=== PATIENT | female | born 1990 | race Caucasian/White ===

== ENCOUNTER 2018-11-20 16:00 | Inpatient (IN) | payer OTHER ==
[~2018-11-20] VITALS: Ht 157.5 cm; Wt 98.0 kg
[2018-11-20] MEDS ORDERED: NOVOLIN 70100 UNIT/1 SC (16:21)
[2018-11-20] MEDS ORDERED: Novolin R100 UNIT/M SC (16:23)
[2018-11-20] MEDS ORDERED: Humulin N100 UNIT/1 SC (16:24)
[2018-11-20] MEDS ORDERED: Verotin-Gr Cap1 EACH PO (16:24)
[2018-11-20] MEDS ORDERED: LEVSOD75 PO (16:25)
[2018-11-20 17:30] LABS: BASOPHILS ABSOLUTE AUTO 0.02 K/mm3 (0.00-0.23); BASOPHILS PERCENT AUTO 0 % (0-2); EOSINOPHILS ABSOLUTE AUTO 0.06 K/mm3 (0.00-0.68); EOSINOPHILS PERCENT AUTO 1 % (0-6); Hematocrit 39.5 % (33.0-51.0); Hemoglobin 12.9 g/dL (11.5-16.0); IMMATURE GRAN ABSOLUTE AUTO 0.12 K/mm3 (0.00-0.10); IMMATURE GRAN PERCENT AUTO 1 % (0-1); LYMPHOCYTES PERCENT AUTO 13 % (21-46); MONOCYTES ABSOLUTE AUTO 0.71 K/mm3 (0.16-1.47); MONOCYTES PERCENT AUTO 5 % (4-13); Mean Corpuscular HGB 30.8 pg (26.0-34.0); Mean Corpuscular HGB Conc 32.7 g/dL (31.5-36.5); Mean Corpuscular Volume 94 fL (80-100); Mean Platelet Volume 10.5 fL (9.1-12.4); NEUTROPHILS ABSOLUTE AUTO 10.47 K/mm3 (1.96-9.15); NEUTROPHILS PERCENT AUTO 80 % (41-73); Platelet Count 236 K/mm3 (150-400); RDW Coefficient Variation 14.6 % (11.7-14.2); Red Blood Cell Count 4.19 M/mm3 (3.80-5.20); White Blood Cell Count 13.08 K/mm3 (4.00-11.30)
[2018-11-22 05:50] LABS: BASOPHILS ABSOLUTE AUTO 0.03 K/mm3 (0.00-0.23); BASOPHILS PERCENT AUTO 0 % (0-2); EOSINOPHILS ABSOLUTE AUTO 0.03 K/mm3 (0.00-0.68); EOSINOPHILS PERCENT AUTO 0 % (0-6); Hematocrit 36.1 % (33.0-51.0); Hemoglobin 11.8 g/dL (11.5-16.0); IMMATURE GRAN ABSOLUTE AUTO 0.11 K/mm3 (0.00-0.10); IMMATURE GRAN PERCENT AUTO 1 % (0-1); LYMPHOCYTES PERCENT AUTO 10 % (21-46); MONOCYTES PERCENT AUTO 6 % (4-13); Mean Corpuscular HGB 30.5 pg (26.0-34.0); Mean Corpuscular HGB Conc 32.7 g/dL (31.5-36.5); Mean Corpuscular Volume 93 fL (80-100); Mean Platelet Volume 10.5 fL (9.1-12.4); NEUTROPHILS ABSOLUTE AUTO 12.46 K/mm3 (1.96-9.15); NEUTROPHILS PERCENT AUTO 83 % (41-73); Platelet Count 203 K/mm3 (150-400); RDW Coefficient Variation 14.5 % (11.7-14.2); Red Blood Cell Count 3.87 M/mm3 (3.80-5.20); White Blood Cell Count 15.03 K/mm3 (4.00-11.30)
[2018-11-22 06:04] LABS: Glucose, Blood 107 mg/dL (70-99)
--- NOTE | 2018-11-22 10:15 | NUR ---
PT SOUND ASLEEP WHEN ROUNDING AT 0730 AND AGAIN AT 0830. PT CALLEDA T 0930 FOR CBG FOR NB, NOT NEEDED ANYMORE. MOM LOVING AND ATTENTIVE TO NB NEEDS. OFFERED HELP WITH [facility] IF NEEDED. PT REPORTS NB SLEEPT, BUT WHEN WAKING HAS A GOOD LATCH AND SUCK. REASSURED THAT NB ISN'T 24 HOURS OLD YET AND ALLIS WELL. PLAN TO WORK ON FEESD TODAY AND THEN DC HOME TOMORROW.
--- NOTE | 2018-11-22 12:00 | NUR ---
IV PULLED X2 ONE IN R AC, AND THE OTHER IN L WRIST. COBANED.
--- NOTE | 2018-11-22 16:35 | NUR ---
REPORT TO EMELI THOMPSON, NO ACUTE CHANGES.
[2018-11-23] MEDS ORDERED: IBUP800 PO (15:15)
--- NOTE | 2018-11-23 16:32 | NUR ---
DISCHARGE INSTRUCTIONS VERBAL AND WRITTEN GIVEN TO PT. PT AND S.O. VERBALIZED UNDERSTANDING. PT ESCORTED TO PRIVATE CAR BY PROJECT MANAGEMENT INSTRUCTOR WITH BELONGINGS IN STABLE CONDITION.
== END 2018-11-23 16:05 | disposition home or self-care (01) | DRG 806 ==
LOC: OBS 16:00 → BC 16:01 → OBS 16:08 → BC 16:09
PROVIDERS: ADMIT Nurse Practitioner Obstetrics & Gynecology
PROC: 3E0P7VZ Introduction of Hormone into Female Reproductive, Via Natural or Artificial Opening (ICD-10-PCS; principal; 2018-11-21)
PROC: 10D07Z6 Extraction of Products of Conception, Vacuum, Via Natural or Artificial Opening (ICD-10-PCS; 2018-11-21)
PROC: 0KQM0ZZ Repair Perineum Muscle, Open Approach (ICD-10-PCS; 2018-11-21)
PROC: 3E033VJ Introduction of Other Hormone into Peripheral Vein, Percutaneous Approach (ICD-10-PCS; 2018-11-21)
PROC: 6A550ZT Pheresis of Cord Blood Stem Cells, Single (ICD-10-PCS; 2018-11-21)
PROC: 00HU33Z Insertion of Infusion Device into Spinal Canal, Percutaneous Approach (ICD-10-PCS; 2018-11-21)
PROC: 3E0R3BZ Introduction of Anesthetic Agent into Spinal Canal, Percutaneous Approach (ICD-10-PCS; 2018-11-21)
DX: O24.424 Gestational diabetes mellitus in childbirth, insulin controlled (principal); O14.93 Unspecified pre-eclampsia, third trimester; Z37.0 Single live birth; O76 Abnormality in fetal heart rate and rhythm complicating labor and delivery; Z3A.38 38 weeks gestation of pregnancy; O70.1 Second degree perineal laceration during delivery
CPT/HCPCS: 36415; 36416; 51702; 59025; 82947; 85025; 86900; 86901; J0290; J1815; J1885; J2001; J2210; J2405; J2590; J3010; J7070; J7120

== ENCOUNTER → 2019-07-01 | Outpatient (CLI) | payer OTHER ==
[~2019-07-01] MED LIST: Humulin N100 UNIT/1 SC; IBUP800 PO; LEVSOD75 PO; NOVOLIN 70100 UNIT/1 SC; Novolin R100 UNIT/M SC; Verotin-Gr Cap1 EACH PO
== END | disposition home or self-care (01) ==
LOC: LAB SHORT 08:07 → PLD 08:07
DX: D22.4 Melanocytic nevi of scalp and neck (principal)
CPT/HCPCS: 88305

== ENCOUNTER → 2019-08-14 | Outpatient (CLI) | payer OTHER ==
[2019-08-14 17:44] LABS: Bacteria Few /hpf; Squamous Epithelial Cells Few /hpf (Few)
== END | disposition home or self-care (01) ==
LOC: LAB 15:59 → LAB SHORT 15:59
PROVIDERS: Family Medicine
DX: R39.15 Urgency of urination (principal)
CPT/HCPCS: 81015

== ENCOUNTER → 2019-11-13 | Outpatient (CLI) | payer OTHER | END | disposition home or self-care (01) | LOC: LAB SHORT 19:16 → LAB 19:16 | DX: N39.0 Urinary tract infection, site not specified (principal); R35.0 Frequency of micturition | CPT/HCPCS: 87077; 87086; 87186 ==

== ENCOUNTER → 2020-03-25 | Outpatient (CLI) | payer OTHER | END | disposition home or self-care (01) | LOC: LAB SHORT 13:00 → LAB 13:00 | DX: R35.0 Frequency of micturition (principal) | CPT/HCPCS: 87086 ==

== ENCOUNTER 2020-08-09 11:43 | Emergency (ER) | payer OTHER ==
[~2020-08-09] VITALS: Ht 157.5 cm; Wt 81.7 kg
[2020-08-09] MEDS ORDERED: Phenergan25 M1 (12:03)
[2020-08-09] MEDS ORDERED: NP THYROID 60 MG PO (12:03)
[2020-08-09 12:12] LABS: Source, Urine Clean Catch
[2020-08-09 12:17] LABS: Bilirubin, Urine Neg (Neg); Blood, Urine 1+ (Neg); Glucose Qualitative, Urine Neg (Neg); Ketones, Urine Neg (Neg); Leukocyte Esterase, Urine 1+ (Neg); Nitrite, Urine Neg (Neg); Protein, Urine Neg (Neg); Urobilinogen, Urine NORM (Normal)
[2020-08-09 12:22] LABS: Appearance, Urine Clear (Clear); Bacteria Not Seen /hpf; Color, Urine Yellow (P-Yellow); Red Blood Cells, Urine 0-2 /hpf (0-2); Squamous Epithelial Cells Not Seen /hpf (Few); White Blood Cells, Urine 0-2 /hpf (0-5)
[2020-08-09 12:38] LABS: BASOPHILS ABSOLUTE AUTO 0.02 K/mm3 (0.00-0.23); BASOPHILS PERCENT AUTO 0 % (0-2); EOSINOPHILS ABSOLUTE AUTO 0.12 K/mm3 (0.00-0.68); EOSINOPHILS PERCENT AUTO 1 % (0-6); Hematocrit 38.7 % (33.0-51.0); Hemoglobin 12.6 g/dL (11.5-16.0); IMMATURE GRAN ABSOLUTE AUTO 0.03 K/mm3 (0.00-0.10); IMMATURE GRAN PERCENT AUTO 0 % (0-1); LYMPHOCYTES ABSOLUTE AUTO 1.61 K/mm3 (0.84-5.20); LYMPHOCYTES PERCENT AUTO 15 % (21-46); MONOCYTES ABSOLUTE AUTO 0.72 K/mm3 (0.16-1.47); MONOCYTES PERCENT AUTO 7 % (4-13); Mean Corpuscular HGB 29.3 pg (26.0-34.0); Mean Corpuscular HGB Conc 32.6 g/dL (31.5-36.5); Mean Corpuscular Volume 90 fL (80-100); Mean Platelet Volume 10.3 fL (9.1-12.4); NEUTROPHILS ABSOLUTE AUTO 7.93 K/mm3 (1.96-9.15); NEUTROPHILS PERCENT AUTO 76 % (41-73); Platelet Count 220 K/mm3 (150-400); RDW Coefficient Variation 14.6 % (11.7-14.2); RDW Standard Deviation 47.4 fL (35.1-46.3); White Blood Cell Count 10.43 K/mm3 (4.00-11.30)
[2020-08-09 13:04] LABS: Alanine Aminotransfer (ALT/SGP 16 U/L (12-78); Albumin, Blood 3.2 g/dL (3.4-5.0); Albumin/Globulin Ratio 0.9 (0.8-1.8); Alk Phos 104 U/L (50-136); Anion Gap 5 mmol/L (6-16); Aspartate Aminotrans (AST/SGOT 13 U/L (12-37); Bilirubin, Total 0.3 mg/dL (0.1-1.0); Blood Urea Nitrogen 10 mg/dL (8-24); CO2, Blood 25 mmol/L (21-32); Calcium, Blood 8.6 mg/dL (8.5-10.1); Chloride, Blood 107 mmol/L (98-108); Globulin, Blood 3.5 g/dL (2.2-4.0); Glomerular Filtration Rate >60 (60-); Glucose, Blood 96 mg/dL (70-99); Potassium, Blood 3.9 mmol/L (3.5-5.5); Sodium, Blood 137 mmol/L (136-145); Total Protein, Blood 6.7 g/dL (6.4-8.2)
[2020-08-09 13:16] LABS: Beta HCG, Quantitative, Serum 38710 mIU/mL (0-3)
== END 2020-08-09 14:40 | disposition home or self-care (01) ==
LOC: ER 11:43
PROVIDERS: Emergency Medicine
DX: O99.281 Endocrine, nutritional and metabolic diseases complicating pregnancy, first trimester (principal); O24.419 Gestational diabetes mellitus in pregnancy, unspecified control; E86.0 Dehydration; Z3A.01 Less than 8 weeks gestation of pregnancy; Z91.09 Other allergy status, other than to drugs and biological substances; Z79.899 Other long term (current) drug therapy
CPT/HCPCS: 36415; 80053; 81001; 83690; 84702; 85025; 87086; 93005; 93010; 96360; 99284-25; J7030

== ENCOUNTER 2020-10-28 21:09 | Emergency (ER) | payer OTHER ==
[~2020-10-28] VITALS: Ht 157.5 cm; Wt 85.7 kg
[~2020-10-28 21:09] MED LIST changes: +NP THYROID 60 MG PO; +Phenergan25 M1
[2020-10-28 22:16] LABS: BASOPHILS ABSOLUTE AUTO 0.03 K/mm3 (0.00-0.23); BASOPHILS PERCENT AUTO 0 % (0-2); EOSINOPHILS ABSOLUTE AUTO 0.13 K/mm3 (0.00-0.68); EOSINOPHILS PERCENT AUTO 1 % (0-6); Hematocrit 36.9 % (33.0-51.0); Hemoglobin 12.4 g/dL (11.5-16.0); IMMATURE GRAN ABSOLUTE AUTO 0.07 K/mm3 (0.00-0.10); IMMATURE GRAN PERCENT AUTO 1 % (0-1); LYMPHOCYTES ABSOLUTE AUTO 2.35 K/mm3 (0.84-5.20); LYMPHOCYTES PERCENT AUTO 18 % (21-46); MONOCYTES ABSOLUTE AUTO 0.64 K/mm3 (0.16-1.47); MONOCYTES PERCENT AUTO 5 % (4-13); Mean Corpuscular HGB 30.8 pg (26.0-34.0); Mean Corpuscular HGB Conc 33.6 g/dL (31.5-36.5); Mean Corpuscular Volume 92 fL (80-100); Mean Platelet Volume 9.9 fL (9.1-12.4); NEUTROPHILS ABSOLUTE AUTO 10.23 K/mm3 (1.96-9.15); NEUTROPHILS PERCENT AUTO 76 % (41-73); Platelet Count 210 K/mm3 (150-400); RDW Coefficient Variation 14.5 % (11.7-14.2); RDW Standard Deviation 48.9 fL (35.1-46.3); Red Blood Cell Count 4.03 M/mm3 (3.80-5.20); White Blood Cell Count 13.45 K/mm3 (4.00-11.30)
[2020-10-28 22:33] LABS: Alanine Aminotransfer (ALT/SGP 12 U/L (12-78); Albumin, Blood 2.8 g/dL (3.4-5.0); Albumin/Globulin Ratio 0.8 (0.8-1.8); Alk Phos 90 U/L (50-136); Anion Gap 6 mmol/L (6-16); Aspartate Aminotrans (AST/SGOT 13 U/L (12-37); Bilirubin, Total 0.2 mg/dL (0.1-1.0); Blood Urea Nitrogen 11 mg/dL (8-24); Bun/Creatinine Ratio 18.7 (12.0-20.0); CO2, Blood 27 mmol/L (21-32); Calcium, Blood 9.1 mg/dL (8.5-10.1); Chloride, Blood 104 mmol/L (98-108); Creatinine, Blood 0.59 mg/dL (0.40-1.00); Globulin, Blood 3.5 g/dL (2.2-4.0); Glomerular Filtration Rate >60 (60-); Glucose, Blood 103 mg/dL (70-99); Potassium, Blood 3.5 mmol/L (3.5-5.5); Sodium, Blood 137 mmol/L (136-145); Total Protein, Blood 6.3 g/dL (6.4-8.2)
[2020-10-28 22:58] LABS: Source, Urine Clean Catch
[2020-10-28 23:07] LABS: Bilirubin, Urine Neg (Neg); Blood, Urine 1+ (Neg); Glucose Qualitative, Urine Neg (Neg); Ketones, Urine Neg (Neg); Leukocyte Esterase, Urine 1+ (Neg); Nitrite, Urine Neg (Neg); Protein, Urine Neg (Neg); Specific Gravity, Urine 1.015 (1.003-1.022); Urobilinogen, Urine NORM (Normal)
[2020-10-28 23:08] LABS: Appearance, Urine Hazy (Clear); Color, Urine Yellow (P-Yellow)
[2020-10-28] MEDS ORDERED: THERA-D2000 UNIT PO (23:10)
[2020-10-28 23:11] LABS: Amorphous Mod (0-Heavy); Bacteria Few /hpf; Red Blood Cells, Urine 0-2 /hpf (0-2); Squamous Epithelial Cells Few /hpf (Few); White Blood Cells, Urine 0-2 /hpf (0-5)
[2020-10-28] MEDS ORDERED: Aspir 8181 MG PO (23:11)
== END 2020-10-28 23:45 | disposition home or self-care (01) ==
LOC: ER 21:09
PROVIDERS: Physician Assistant
DX: O99.891 Other specified diseases and conditions complicating pregnancy (principal); R10.2 Pelvic and perineal pain; Z3A.18 18 weeks gestation of pregnancy
CPT/HCPCS: 36415; 76815; 80053; 81001; 85025; 87086; 99284-25

== ENCOUNTER 2021-03-21 18:41 | Inpatient (IN) | payer OTHER ==
[~2021-03-21] VITALS: Ht 157.5 cm; Wt 90.0 kg
[~2021-03-21 18:41] MED LIST changes: +Aspir 8181 MG PO; +THERA-D2000 UNIT PO
[2021-03-21] MEDS ORDERED: METFORMIN ER1000 M2 PO (19:31)
[2021-03-21] MEDS ORDERED: NOVOLOG100 UNIT/3 SC (19:33)
[2021-03-21 20:40] LABS: BASOPHILS ABSOLUTE AUTO 0.03 K/mm3 (0.00-0.23); BASOPHILS PERCENT AUTO 0 % (0-2); EOSINOPHILS ABSOLUTE AUTO 0.05 K/mm3 (0.00-0.68); EOSINOPHILS PERCENT AUTO 0 % (0-6); Hematocrit 39.5 % (33.0-51.0); Hemoglobin 13.4 g/dL (11.5-16.0); IMMATURE GRAN ABSOLUTE AUTO 0.04 K/mm3 (0.00-0.10); IMMATURE GRAN PERCENT AUTO 0 % (0-1); LYMPHOCYTES ABSOLUTE AUTO 1.56 K/mm3 (0.84-5.20); LYMPHOCYTES PERCENT AUTO 14 % (21-46); MONOCYTES ABSOLUTE AUTO 0.72 K/mm3 (0.16-1.47); MONOCYTES PERCENT AUTO 6 % (4-13); Mean Corpuscular HGB 32.1 pg (26.0-34.0); Mean Corpuscular HGB Conc 33.9 g/dL (31.5-36.5); Mean Corpuscular Volume 95 fL (80-100); Mean Platelet Volume 10.9 fL (9.1-12.4); NEUTROPHILS ABSOLUTE AUTO 9.19 K/mm3 (1.96-9.15); NEUTROPHILS PERCENT AUTO 79 % (41-73); Platelet Count 175 K/mm3 (150-400); RDW Coefficient Variation 14.8 % (11.7-14.2); RDW Standard Deviation 50.8 fL (35.1-46.3); Red Blood Cell Count 4.18 M/mm3 (3.80-5.20); White Blood Cell Count 11.59 K/mm3 (4.00-11.30)
[2021-03-21 21:00] LABS: Alanine Aminotransfer (ALT/SGP 18 U/L (12-78); Albumin, Blood 2.2 g/dL (3.4-5.0); Albumin/Globulin Ratio 0.6 (0.8-1.8); Alk Phos 134 U/L (50-136); Anion Gap 9 mmol/L (6-16); Aspartate Aminotrans (AST/SGOT 21 U/L (12-37); Bilirubin, Total 0.4 mg/dL (0.1-1.0); Blood Urea Nitrogen 21 mg/dL (8-24); Bun/Creatinine Ratio 26.9 (12.0-20.0); CO2, Blood 20 mmol/L (21-32); Calcium, Blood 9.1 mg/dL (8.5-10.1); Chloride, Blood 110 mmol/L (98-108); Creatinine, Blood 0.78 mg/dL (0.40-1.00); Globulin, Blood 3.6 g/dL (2.2-4.0); Glomerular Filtration Rate >60 (60-); Glucose, Blood 105 mg/dL (70-99); Potassium, Blood 3.6 mmol/L (3.5-5.5); Sodium, Blood 139 mmol/L (136-145); Total Protein, Blood 5.8 g/dL (6.4-8.2)
[2021-03-21 21:15] LABS: SARS-Cov-2 (COVID-19) PCR, MMC NEGATIVE (NEGATIVE)
[2021-03-23 05:36] LABS: Hematocrit 38.4 % (33.0-51.0); Hemoglobin 12.6 g/dL (11.5-16.0); Mean Corpuscular HGB 31.5 pg (26.0-34.0); Mean Corpuscular HGB Conc 32.8 g/dL (31.5-36.5); Mean Corpuscular Volume 96 fL (80-100); Mean Platelet Volume 10.8 fL (9.1-12.4); Platelet Count 146 K/mm3 (150-400); RDW Coefficient Variation 14.8 % (11.7-14.2); RDW Standard Deviation 52.5 fL (35.1-46.3); White Blood Cell Count 10.33 K/mm3 (4.00-11.30)
[2021-03-23] MEDS ORDERED: IBUP800 PO (10:44)
--- NOTE | 2021-03-23 11:30 | NUR ---
Printed d/c instructions and teaching reviewed w/pt, who is experienced mother. Denies questions, verbalized understanding.
--- NOTE | 2021-03-23 12:15 | NUR ---
IV D/C'd, BANDS MATCHED WITH , DENIES ADDITION QUESTIONS OR CONCERNS, D/C'd ambulator home with .
== END 2021-03-23 11:50 | disposition home or self-care (01) | DRG 806 ==
LOC: OBS 18:41 → BC 18:43 → OBS 18:52 → BC 18:55
PROVIDERS: ADMIT Nurse Practitioner Obstetrics & Gynecology
PROC: 10E0XZZ Delivery of Products of Conception, External Approach (ICD-10-PCS; principal; 2021-03-22)
PROC: 0W8NXZZ Division of Female Perineum, External Approach (ICD-10-PCS; 2021-03-22)
DX: O42.02 Full-term premature rupture of membranes, onset of labor within 24 hours of rupture (principal); O99.354 Diseases of the nervous system complicating childbirth; Z37.0 Single live birth; G36.0 Neuromyelitis optica [Devic]; O24.429 Gestational diabetes mellitus in childbirth, unspecified control; Z3A.38 38 weeks gestation of pregnancy; O99.284 Endocrine, nutritional and metabolic diseases complicating childbirth; E03.9 Hypothyroidism, unspecified; O76 Abnormality in fetal heart rate and rhythm complicating labor and delivery; Z91.09 Other allergy status, other than to drugs and biological substances
CPT/HCPCS: 36415; 59025; 80053; 82947; 85025; 85027; 85460; 86850; 86870; 86900; 86901; 96372; A9270; J1885; J2210; J2590; J2791; J7120; U0004

== ENCOUNTER 2021-05-07 22:21 | Emergency (ER) | payer OTHER ==
[~2021-05-07] VITALS: Ht 157.5 cm; Wt 74.4 kg
[~2021-05-07 22:21] MED LIST changes: +METFORMIN ER1000 M2 PO; +NOVOLOG100 UNIT/3 SC
[2021-05-08] MEDS ORDERED: PROM25 PO (00:02)
== END 2021-05-08 03:41 | disposition home or self-care (01) ==
LOC: ER 22:21
DX: U07.1 COVID-19 (principal)
CPT/HCPCS: 36415; 96374; 96375; 99283-25; A9270; J1885; J2550; J7030; M0243; Q0243

== ENCOUNTER → 2021-05-20 | Outpatient (CLI) | payer OTHER ==
[~2021-05-20] MED LIST changes: +PROM25 PO
== END | disposition home or self-care (01) ==
LOC: LAB 16:15 → LAB SHORT 16:15
DX: N30.01 Acute cystitis with hematuria (principal)
CPT/HCPCS: 87077; 87086; 87186

== ENCOUNTER → 2021-05-31 | Outpatient (CLI) | payer OTHER | END | disposition home or self-care (01) | LOC: LAB 17:41 → LAB SHORT 17:41 | DX: R82.998 Other abnormal findings in urine (principal) | CPT/HCPCS: 87077; 87086; 87186 ==

== ENCOUNTER 2021-06-08 19:31 | Emergency (ER) | payer OTHER ==
[~2021-06-08] VITALS: Ht 157.5 cm; Wt 73.0 kg
[2021-06-08 19:55] LABS: BASOPHILS ABSOLUTE AUTO 0.04 K/mm3 (0.00-0.23); BASOPHILS PERCENT AUTO 1 % (0-2); EOSINOPHILS PERCENT AUTO 5 % (0-6); Hematocrit 40.2 % (33.0-51.0); Hemoglobin 13.3 g/dL (11.5-16.0); IMMATURE GRAN ABSOLUTE AUTO 0.03 K/mm3 (0.00-0.10); IMMATURE GRAN PERCENT AUTO 0 % (0-1); LYMPHOCYTES PERCENT AUTO 37 % (21-46); MONOCYTES ABSOLUTE AUTO 0.75 K/mm3 (0.16-1.47); MONOCYTES PERCENT AUTO 11 % (4-13); Mean Corpuscular HGB 31.2 pg (26.0-34.0); Mean Corpuscular HGB Conc 33.1 g/dL (31.5-36.5); Mean Corpuscular Volume 94 fL (80-100); Mean Platelet Volume 9.7 fL (9.1-12.4); NEUTROPHILS PERCENT AUTO 46 % (41-73); Platelet Count 207 K/mm3 (150-400); RDW Coefficient Variation 14.5 % (11.7-14.2); Red Blood Cell Count 4.26 M/mm3 (3.80-5.20); White Blood Cell Count 6.72 K/mm3 (4.00-11.30)
[2021-06-08 20:21] LABS: Alanine Aminotransfer (ALT/SGP 18 U/L (12-78); Albumin, Blood 3.5 g/dL (3.4-5.0); Albumin/Globulin Ratio 1.1 (0.8-1.8); Alk Phos 114 U/L (50-136); Anion Gap 6 mmol/L (6-16); Aspartate Aminotrans (AST/SGOT 19 U/L (12-37); Bilirubin, Total 0.4 mg/dL (0.1-1.0); Blood Urea Nitrogen 19 mg/dL (8-24); Bun/Creatinine Ratio 30.7 (12.0-20.0); CO2, Blood 29 mmol/L (21-32); Calcium, Blood 9.1 mg/dL (8.5-10.1); Chloride, Blood 105 mmol/L (98-108); Creatinine, Blood 0.62 mg/dL (0.40-1.00); Globulin, Blood 3.3 g/dL (2.2-4.0); Glomerular Filtration Rate >60 (60-); Glucose, Blood 125 mg/dL (70-99); Sodium, Blood 140 mmol/L (136-145); Total Protein, Blood 6.8 g/dL (6.4-8.2); Troponin I <0.015 ng/mL (0.000-0.040)
[2021-06-08 21:47] LABS: Free Thyroxine 0.96 ng/dL (0.70-1.60); Magnesium, Blood 1.9 mg/dL (1.6-2.4)
[2021-06-08 21:49] LABS: Thyroid Stimulating Hormone <0.005 uIU/mL (0.360-4.800)
[2021-06-08] MEDS ORDERED: THYROID NP (21:49)
[2021-06-08] MEDS ORDERED: ZINC15 PO (21:50)
[2021-06-08] MEDS ORDERED: MAGNESIUM GLU27.5 M1 PO (21:50)
== END 2021-06-08 22:46 | disposition home or self-care (01) ==
LOC: ER 19:31
PROVIDERS: Physician Assistant
DX: I49.3 Ventricular premature depolarization (principal); Z91.048 Other nonmedicinal substance allergy status
CPT/HCPCS: 36415; 80053; 83735; 84439; 84443; 84484; 85025; 93005; 93010; 99285-25